=== PATIENT | male | born 1960 | race African-American/Black ===

== ENCOUNTER 2018-07-02 09:58 | Inpatient (IN) | payer MEDICARE, MEDICAID ==
[~2018-07-02] VITALS: Ht 172.7 cm; Wt 87.8 kg
[2018-07-02] VITALS (8 sets, daily range): BP systolic 136–161; BP diastolic 78–122
[~2018-07-02 09:58] MED LIST: ACID1TAB7 PO; ASPI325T17 PO; ATOR40TA78 PO; CARV12.52 PO; FURO20TA3 PO; LISI-167 PO; SPIR25TA PO; TAMS0.4C2 PO
--- NOTE | 2018-07-02 10:59 | NUR ---
pt c/o lightheadedness this am with near syncopal event. pt currently complaint free and denies cp/ sob, dizziness, lightheadedness.
[2018-07-02] MEDS ORDERED: SPIR25TA5 PO (11:03)
[2018-07-02 11:47] LABS: ALBUMIN 3.7 g/dL (3.4-5.0); ANION GAP 4 mmol/L (5-15); CALCIUM 8.6 mg/dL (8.5-10.1); CHLORIDE 111 mmol/L (98-107)
[2018-07-02 11:56] LABS: TROPONIN I 0.127 ng/mL (0.000-0.045)
[2018-07-02 12:23] LABS: MEAN CORPUSCULAR HEMOGLOBIN 23.5 pg (27.5-34.5); MEAN CORPUSCULAR HGB CONC 31.8 g/dL (33.2-36.2); MEAN PLATELET VOLUME 12.9 fL (7.4-10.4); PLATELET COUNT 206 x10^3/uL (130-400); RED BLOOD COUNT 5.98 x10^6/uL (4.38-5.82); RED CELL DISTRIBUTION WIDTH 17.5 % (9.4-14.8)
[2018-07-02 12:24] LABS: MD YES
[2018-07-02 12:27] LABS: BAND#(MANUAL) 0.11 x10^3/uL; BANDS%(MANUAL) 2 % (0-7); EOS#(MANUAL) 0.16 x10^3/uL (0.0-0.4); EOS% (MANUAL) 3 % (1-7); LYMPHS% (MANUAL) 34 % (22-44); MONOS#(MANUAL) 0.27 x10^3/uL (0.3-2.7); MONOS% (MANUAL) 5 % (2-9); REACTIVE LYMPHS # (MANUAL) 0.05 x10^3/uL (0-0); REACTIVE LYMPHS % (MANUAL) 1 % (0-0); SEG#(MANUAL) 2.92 x10^3/uL (1.8-6.8); SEGS% (MANUAL) 55 % (42-75)
[2018-07-02 12:29] LABS: ANISOCYTOSIS 1+; HYPOCHROMIA 1+; MICROCYTOSIS 1+; OVALOCYTES 2+; SCHISTOCYTES 1+
[2018-07-02 12:30] LABS: POLYCHROMASIA 1+
[2018-07-02 12:31] LABS: <PLATELET ESTIMATE> ADEQUATE; GIANT PLATELETS 1+; LARGE PLATELETS 1+; SPHEROCYTES 1+
[2018-07-02 12:32] LABS: TEAR DROPS 1+
[2018-07-02] MEDS ORDERED: ONDANSETRON 2MG/ML, 2ML IVPush PRN (13:00)
[2018-07-02] MEDS ORDERED: HEPARIN 5,000 UNITS/ML, 1ML IV PRN (13:00)
[2018-07-02] MEDS ORDERED: LABETALOL 5 MG/ML SYRINGE IVPush PRN (13:00)
[2018-07-02] MEDS ORDERED: ONDANSETRON ODT 4 MG PO PRN (13:00)
[2018-07-02] MEDS ORDERED: HEPARIN 5,000 UNITS/ML, 1ML IV ONE (13:00)
[2018-07-02] MEDS ORDERED: HEPARIN 25,000 UNITS/500ML PMX 500 ML IV PRN (13:00)
[2018-07-02] MEDS ORDERED: HEPARIN 5,000 UNITS/ML, 1ML ONE (13:07)
[2018-07-02] MEDS ORDERED: HEPARIN 25,000 UNITS/500ML PMX 500 ML ONE (13:08)
--- NOTE | 2018-07-02 13:31 | NUR ---
pt medicated per order at this time. pt aware while medication is being administered that he is to stay in bed and is not to walk around. pt agrees with care.
[2018-07-02 17:24] LABS: TROPONIN I 0.117 ng/mL (0.000-0.045)
[2018-07-02 18:15] LABS: FREE T4 (FREE THYROXINE) 1.33 ng/dL (0.76-1.46); THYROID STIMULATING HORMONE 1.43 mIU/L (0.358-3.740)
[2018-07-02] MEDS: CARVEDILOL 12.5 MG TABLET PO SCH (20:54)
[2018-07-02] MEDS: ATORVASTATIN 40 MG TABLET PO SCH (20:54)
[2018-07-03 00:54] VITALS: BP 134/94
[2018-07-03] MEDS: ASPIRIN 81 MG TABLET EC PO SCH (05:43)
[2018-07-03 06:01] LABS: MEAN CORPUSCULAR HEMOGLOBIN 24.1 pg (27.5-34.5); MEAN CORPUSCULAR HGB CONC 32.6 g/dL (33.2-36.2); MEAN CORPUSCULAR VOLUME 73.8 fL (81-97); PLATELET COUNT 173 x10^3/uL (130-400); RED BLOOD COUNT 5.71 x10^6/uL (4.38-5.82)
[2018-07-03 06:09] LABS: CHLORIDE 113 mmol/L (98-107)
[2018-07-03 06:20] LABS: ALANINE AMINOTRANSFERASE 73 U/L (12-78); ALBUMIN 3.5 g/dL (3.4-5.0); ALKALINE PHOSPHATASE 98 U/L (45-117); BILIRUBIN,TOTAL 1.3 mg/dL (0.2-1.0); CALCIUM 8.3 mg/dL (8.5-10.1); CREATININE 1.36 mg/dL (0.7-1.3); TOTAL PROTEIN 6.1 g/dL (6.4-8.2); TROPONIN I 0.131 ng/mL (0.000-0.045)
[2018-07-03 06:32] LABS: BASOPHILS # (AUTO) 0.02 x10^3/uL (0-0.1); BASOPHILS % (AUTO) 0 % (0-1); EOSINOPHILS # (AUTO) 0.08 x10^3/uL (0-0.4); EOSINOPHILS % (AUTO) 1 % (1-7); LYMPHOCYTES # (AUTO) 2.32 x10^3/uL (1-3.4); LYMPHOCYTES % (AUTO) 35 % (22-44); MD SCAN; MONOCYTES % (AUTO) 11 % (2-9); NEUTROPHILS # (AUTO) 3.59 x10^3/uL (1.8-6.8); NEUTROPHILS % (AUTO) 54 % (42-75)
[2018-07-03 06:47] LABS: ANION GAP 9 mmol/L (5-15)
[2018-07-03 07:24] VITALS: BP 144/101
[2018-07-03] MEDS: TAMSULOSIN 0.4 MG CAP.ER.24H PO SCH (08:19)
[2018-07-03] MEDS: SPIRONOLACTONE 25 MG TABLET PO SCH (08:19)
[2018-07-03] MEDS: CARVEDILOL 12.5 MG TABLET PO SCH ×2 (08:20→21:26)
[2018-07-03] MEDS: LISINOPRIL 10 MG TABLET PO SCH (08:20)
[2018-07-03] MEDS: ENOXAPARIN 40 MG/0.4 ML SQ SCH (11:33)
[2018-07-03 14:47] VITALS: BP 139/92
[2018-07-03 21:26] VITALS: BP 156/111
[2018-07-03] MEDS: ATORVASTATIN 40 MG TABLET PO SCH (21:26)
[2018-07-04 03:55] VITALS: BP 160/105
[2018-07-04 05:47] LABS: MEAN CORPUSCULAR HEMOGLOBIN 23.5 pg (27.5-34.5); MEAN CORPUSCULAR HGB CONC 31.8 g/dL (33.2-36.2); MEAN CORPUSCULAR VOLUME 73.7 fL (81-97); RED BLOOD COUNT 5.81 x10^6/uL (4.38-5.82); RED CELL DISTRIBUTION WIDTH 17.1 % (9.4-14.8)
[2018-07-04 05:59] LABS: ALBUMIN 3.4 g/dL (3.4-5.0); ANION GAP 7 mmol/L (5-15); CALCIUM 8.6 mg/dL (8.5-10.1); CHLORIDE 112 mmol/L (98-107)
[2018-07-04 06:03] LABS: ALANINE AMINOTRANSFERASE 71 U/L (12-78); ALKALINE PHOSPHATASE 101 U/L (45-117); BILIRUBIN,TOTAL 1.3 mg/dL (0.2-1.0); CREATININE 1.32 mg/dL (0.7-1.3); TOTAL PROTEIN 6.3 g/dL (6.4-8.2)
[2018-07-04 06:11] LABS: MEAN PLATELET VOLUME 12.9 fL (7.4-10.4); PLATELET COUNT 201 x10^3/uL (130-400)
[2018-07-04 06:12] LABS: BASOPHILS # (AUTO) 0.04 x10^3/uL (0-0.1); BASOPHILS % (AUTO) 1 % (0-1); EOSINOPHILS % (AUTO) 2 % (1-7); LYMPHOCYTES # (AUTO) 2.16 x10^3/uL (1-3.4); LYMPHOCYTES % (AUTO) 40 % (22-44); MD MORPH REVIEW ONLY; MONOCYTES # (AUTO) 0.47 x10^3/uL (0.2-0.8); MONOCYTES % (AUTO) 9 % (2-9); NEUTROPHILS % (AUTO) 49 % (42-75)
[2018-07-04 06:13] LABS: ANISOCYTOSIS 1+; HYPOCHROMIA 1+; MICROCYTOSIS 1+; OVALOCYTES 2+; POLYCHROMASIA 1+
[2018-07-04 06:15] LABS: <PLATELET ESTIMATE> ADEQUATE; GIANT PLATELETS 1+; LARGE PLATELETS 1+; SCHISTOCYTES 1+; TARGET CELLS 1+; TEAR DROPS 1+
[2018-07-04 06:17] LABS: ECHINOCYTES 1+
[2018-07-04] MEDS: ASPIRIN 81 MG TABLET EC PO SCH (06:42)
[2018-07-04 07:49] VITALS: BP 151/95
[2018-07-04] MEDS: LISINOPRIL 10 MG TABLET PO SCH (09:28)
[2018-07-04] MEDS: SPIRONOLACTONE 25 MG TABLET PO SCH (09:28)
[2018-07-04] MEDS: CARVEDILOL 12.5 MG TABLET PO SCH (09:28)
[2018-07-04] MEDS: ENOXAPARIN 40 MG/0.4 ML SQ SCH (09:28)
[2018-07-04] MEDS: TAMSULOSIN 0.4 MG CAP.ER.24H PO SCH (09:28)
[2018-07-04] MEDS ORDERED: CARV25TA12 PO (12:37)
[2018-07-04] MEDS ORDERED: CARVEDILOL 25 MG TABLET PO SCH (18:00)
== END 2018-07-04 13:40 | disposition home or self-care (01) | DRG 280 ==
LOC: ED 11:22 → EDIP 12:47 → 5SO 14:52 → DCLOUNGE 07-04 13:28
PROVIDERS: ADMIT Hospitalist; ATTEND Hospitalist
DX: I21.4 Non-ST elevation (NSTEMI) myocardial infarction (principal); N17.0 Acute kidney failure with tubular necrosis; I47.2 Ventricular tachycardia; I25.5 Ischemic cardiomyopathy; I11.0 Hypertensive heart disease with heart failure; D75.89 Other specified diseases of blood and blood-forming organs; E78.5 Hyperlipidemia, unspecified; E86.0 Dehydration; G90.9 Disorder of the autonomic nervous system, unspecified; I07.1 Rheumatic tricuspid insufficiency; I25.10 Atherosclerotic heart disease of native coronary artery without angina pectoris; I48.91 Unspecified atrial fibrillation; I25.2 Old myocardial infarction; I50.9 Heart failure, unspecified; I95.1 Orthostatic hypotension; K21.9 Gastro-esophageal reflux disease without esophagitis; N28.9 Disorder of kidney and ureter, unspecified; N40.0 Benign prostatic hyperplasia without lower urinary tract symptoms; Z79.899 Other long term (current) drug therapy; Z86.73 Personal history of transient ischemic attack (TIA), and cerebral infarction without residual deficits; Z87.891 Personal history of nicotine dependence; Z95.810 Presence of automatic (implantable) cardiac defibrillator
CPT/HCPCS: 36415; 70450; 71045; 80048; 80053; 82040; 82607; 82728; 83540; 83550; 83735; 84100; 84439; 84443; 84484; 85025; 85520; 93005; 93880; 99291; G0378; J1644

== ENCOUNTER 2018-08-16 10:56 | Inpatient (IN) | payer MEDICARE, MEDICAID ==
[~2018-08-16] VITALS: Ht 172.7 cm; Wt 79.0 kg
[~2018-08-16 10:56] MED LIST changes: +CARV25TA12 PO; +SPIR25TA5 PO
--- NOTE | 2018-08-16 11:20 | NUR ---
Pt bib girlfriend after waking up this morning with RUE numbness/weakness & confusion. Pt has no facial droop, drift of RUE after 8sec w/ weaker cad developer R hand. Oriented to person & place but not time/event. Per girlfriend, exhibited none of these s/s last night before going to bed. EKG done in triage, cardiac, NIBP & SPO2 monitors IP.
[2018-08-16] MEDS ORDERED: SODIUM CHLORIDE FLUSH 10ML SYR IVF ONE (11:30)
[2018-08-16] MEDS ORDERED: METR500T PO (11:58)
[2018-08-16] MEDS ORDERED: CARV12.52 PO (11:58)
[2018-08-16] MEDS ORDERED: LISI-167 PO (11:58)
--- NOTE | 2018-08-16 12:00 | NUR ---
CT head complete. Results pending.
[2018-08-16 12:01] LABS: ALBUMIN 3.9 g/dL (3.4-5.0); ANION GAP 8 mmol/L (5-15); CALCIUM 9.1 mg/dL (8.5-10.1); CHLORIDE 109 mmol/L (98-107); CREATININE 1.33 mg/dL (0.7-1.3)
[2018-08-16 12:17] LABS: BASOPHILS # (AUTO) 0.01 x10^3/uL (0-0.1); BASOPHILS % (AUTO) 0 % (0-1); EOSINOPHILS # (AUTO) 0.13 x10^3/uL (0-0.4); EOSINOPHILS % (AUTO) 2 % (1-7); LYMPHOCYTES # (AUTO) 1.36 x10^3/uL (1-3.4); LYMPHOCYTES % (AUTO) 22 % (22-44); MD SCAN; MEAN CORPUSCULAR HEMOGLOBIN 23.3 pg (27.5-34.5); MEAN CORPUSCULAR HGB CONC 32.4 g/dL (33.2-36.2); MEAN CORPUSCULAR VOLUME 71.9 fL (81-97); MEAN PLATELET VOLUME 12.8 fL (7.4-10.4); MONOCYTES # (AUTO) 0.41 x10^3/uL (0.2-0.8); MONOCYTES % (AUTO) 7 % (2-9); NEUTROPHILS # (AUTO) 4.28 x10^3/uL (1.8-6.8); NEUTROPHILS % (AUTO) 69 % (42-75); PLATELET COUNT 221 x10^3/uL (130-400); RED BLOOD COUNT 6.57 x10^6/uL (4.38-5.82)
[2018-08-16] MEDS ORDERED: ASPIRIN 81 MG TABLET CHEW ONE (12:41)
[2018-08-16] MEDS ORDERED: ASPIRIN 81 MG TABLET CHEW PO ONE (13:00)
[2018-08-16] MEDS ORDERED: hydrALAzine 20 MG/ML, 1ML ONE (13:07)
--- NOTE | 2018-08-16 13:16 | NUR ---
PT. WAS MEDICATED ORDERED. PT. HAS THE CP MONITOR IN PLACE. BP REMAINS ELEVATED DISCUSSED WITH DR. DURAN. PT. HAS THE SIDERAILS UP X [address] AND THE CALL LIGHT IN PLACE. PT. PASSED HIS SWALLOW EVALUATION. PT. HAS NO C/O PAIN AT THIS TIME.
[2018-08-16] MEDS ORDERED: hydrALAzine 20 MG/ML, 1ML IV ONE (13:30)
--- NOTE | 2018-08-16 13:36 | NUR ---
PT. HAS C/O FEELING SOB. SATS ARE 100%. 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 PT.'S BP IS ELEVATED DISCUSSED WITH .
--- NOTE | 2018-08-16 13:57 | NUR ---
DR. FREY TO THE BEDSIDE TO EVALUATE THE PT. PT. WAS STARTED ON NICARDIPINE ORDERED. RN REMAINS AT THE BEDSIDE WITH THE PT. CONTINUOUS MONITORING IN PLACE. REPEAT EKG DONE. PT. DOES C/O OF FEELING SOB.
--- NOTE | 2018-08-16 14:04 | NUR ---
PT. REPORT WAS GIVEN TO MAVERICK LOPEZ.
--- NOTE | 2018-08-16 14:33 | NUR ---
PT.'S BLOOD PRESSURE HAS IMPROVED. DR. FREY TO THE BEDSIDE TO ASSESS THE PT. PT. HAS A SECOND IV ESTABLISHED. REPORT WAS GIVEN TO MAVERICK LOPEZ. PT. IS BEING TRANSPORTED TO ICU ROOM 2. JOHN BULLOCK AND CORTNEY AKBAR TO ACCOMPANY THE PT.
[2018-08-16] MEDS ORDERED: DOCUSATE 100 MG CAPSULE PO PRN (15:30)
[2018-08-16] MEDS: ENOXAPARIN 40 MG/0.4 ML SQ SCH (15:30)
[2018-08-16] MEDS ORDERED: LABETALOL 5MG/ML, 20ML IVPush PRN (15:30)
[2018-08-16] MEDS ORDERED: ACETAMINOPHEN 650 MG/20.3 ML UDC PO PRN (15:30)
[2018-08-16] MEDS ORDERED: OXYcodone 5 MG/5 ML ORAL.SOL UDC PO PRN (15:30)
[2018-08-16] MEDS ORDERED: hydrALAzine 20 MG/ML, 1ML IVPush PRN (15:30)
[2018-08-16] MEDS ORDERED: ONDANSETRON 2MG/ML, 2ML IVPush PRN (15:30)
[2018-08-16] MEDS ORDERED: POLYETHYLENE GLYCOL 17 GM PACKET PO PRN (15:30)
[2018-08-16 16:20] LABS: AMPHETAMINE SCREEN, URINE Negative (Negative); BARBITURATE SCREEN, URINE Negative (Negative); BENZODIAZEPINE SCREEN, URINE Negative (Negative); CANNABINOID SCREEN, URINE Negative (Negative); COCAINE SCREEN, URINE Negative (Negative); METHADONE SCREEN, URINE Negative (Negative); OPIATE SCREEN, URINE Negative (Negative)
[2018-08-16] MEDS: ATORVASTATIN 80 MG TABLET PO SCH (20:29)
[2018-08-17 04:59] LABS: MEAN CORPUSCULAR HEMOGLOBIN 23.6 pg (27.5-34.5); MEAN CORPUSCULAR HGB CONC 32.5 g/dL (33.2-36.2); MEAN CORPUSCULAR VOLUME 72.8 fL (81-97); MEAN PLATELET VOLUME 12.9 fL (7.4-10.4); PLATELET COUNT 211 x10^3/uL (130-400); RED BLOOD COUNT 6.46 x10^6/uL (4.38-5.82); RED CELL DISTRIBUTION WIDTH 16.2 % (9.4-14.8)
[2018-08-17 05:01] VITALS: BP 162/100
[2018-08-17 05:05] LABS: ALBUMIN 3.7 g/dL (3.4-5.0); ANION GAP 7 mmol/L (5-15); CALCIUM 9.5 mg/dL (8.5-10.1); CHLORIDE 105 mmol/L (98-107)
[2018-08-17 05:09] LABS: ALANINE AMINOTRANSFERASE 19 U/L (12-78); ALKALINE PHOSPHATASE 78 U/L (45-117); BILIRUBIN,TOTAL 2.2 mg/dL (0.2-1.0); CHOL/HDL RATIO 5.8; CHOLESTEROL, TOTAL 150 mg/dL (140-239); CREATININE 1.24 mg/dL (0.7-1.3); HDL CHOL % 17 % (26-37); HDL CHOLESTEROL (DIRECT) 26 mg/dL (40-60); LDL CHOLESTEROL,CALCULATED 106 mg/dL (54-169); LDL/HDL RATIO 4.1 (0.5-3.0); TOTAL PROTEIN 7.2 g/dL (6.4-8.2); TRIGLYCERIDES 89 mg/dL (50-200); VLDL CHOLESTEROL 18 mg/dL (0-25)
[2018-08-17 06:32] LABS: BASOPHILS # (AUTO) 0.02 x10^3/uL (0-0.1); BASOPHILS % (AUTO) 0 % (0-1); EOSINOPHILS # (AUTO) 0.14 x10^3/uL (0-0.4); EOSINOPHILS % (AUTO) 2 % (1-7); LYMPHOCYTES # (AUTO) 1.58 x10^3/uL (1-3.4); LYMPHOCYTES % (AUTO) 24 % (22-44); MD SCAN; MONOCYTES # (AUTO) 0.69 x10^3/uL (0.2-0.8); MONOCYTES % (AUTO) 11 % (2-9); NEUTROPHILS # (AUTO) 4.03 x10^3/uL (1.8-6.8); NEUTROPHILS % (AUTO) 62 % (42-75)
[2018-08-17] MEDS: CLOPIDOGREL 75 MG TABLET PO SCH (08:39)
[2018-08-17] MEDS: ASPIRIN 81 MG TABLET CHEW PO/NG SCH (08:40)
[2018-08-17] MEDS: ENOXAPARIN 40 MG/0.4 ML SQ SCH (16:22)
[2018-08-17 17:38] VITALS: BP 140/103
[2018-08-17 19:13] VITALS: BP 132/96
[2018-08-17] MEDS: ATORVASTATIN 80 MG TABLET PO SCH (20:39)
[2018-08-17] MEDS: CARVEDILOL 12.5 MG TABLET PO SCH (20:39)
[2018-08-17] MEDS: FUROSEMIDE 20 MG TABLET PO SCH (20:39)
[2018-08-18 02:19] VITALS: BP 106/70
[2018-08-18 07:02] VITALS: BP 141/95
[2018-08-18] MEDS: CARVEDILOL 12.5 MG TABLET PO SCH (08:22)
[2018-08-18] MEDS: CLOPIDOGREL 75 MG TABLET PO SCH (08:23)
[2018-08-18] MEDS: FUROSEMIDE 20 MG TABLET PO SCH (08:23)
[2018-08-18] MEDS: ASPIRIN 81 MG TABLET CHEW PO/NG SCH (08:24)
[2018-08-18] MEDS ORDERED: LISINOPRIL 10 MG TABLET PO SCH (09:00)
[2018-08-18] MEDS ORDERED: SPIRONOLACTONE 25 MG TABLET PO SCH (09:00)
[2018-08-18 12:16] VITALS: BP 93/66
[2018-08-18] MEDS ORDERED: ASPI-515 PO/NG (14:02)
[2018-08-18] MEDS ORDERED: LISI5TAB7 PO (14:02)
[2018-08-18] MEDS ORDERED: CLOP75TA PO (14:02)
[2018-08-18] MEDS ORDERED: POLY17PO5 PO (14:02)
[2018-08-18] MEDS ORDERED: SPIR25TA5 PO (14:14)
[2018-08-18] MEDS ORDERED: TAMS-11 PO (14:14)
[2018-08-18] MEDS ORDERED: ATOR-2 PO (16:12)
== END 2018-08-18 16:09 | disposition home or self-care (01) | DRG 64 ==
LOC: ED 14:19 → ICU 14:20 → CCU 16:52 → ICU 20:22 → 4EST 08-17 17:47 → DCLOUNGE 08-18 15:40
PROVIDERS: ADMIT Internal Medicine; ATTEND Internal Medicine
DX: I63.412 Cerebral infarction due to embolism of left middle cerebral artery (principal); N17.0 Acute kidney failure with tubular necrosis; I42.9 Cardiomyopathy, unspecified; I31.3 Pericardial effusion (noninflammatory); G83.21 Monoplegia of upper limb affecting right dominant side; I11.0 Hypertensive heart disease with heart failure; I50.9 Heart failure, unspecified; E78.5 Hyperlipidemia, unspecified; I25.10 Atherosclerotic heart disease of native coronary artery without angina pectoris; K21.9 Gastro-esophageal reflux disease without esophagitis; N40.0 Benign prostatic hyperplasia without lower urinary tract symptoms; I27.20 Pulmonary hypertension, unspecified; I08.1 Rheumatic disorders of both mitral and tricuspid valves; D75.89 Other specified diseases of blood and blood-forming organs; Z95.810 Presence of automatic (implantable) cardiac defibrillator; Z82.49 Family history of ischemic heart disease and other diseases of the circulatory system; Z79.82 Long term (current) use of aspirin; Z79.899 Other long term (current) drug therapy; Z79.01 Long term (current) use of anticoagulants; I25.2 Old myocardial infarction; Z87.891 Personal history of nicotine dependence
CPT/HCPCS: 36415; 70450; 71045; 80048; 80053; 80061; 80307; 82040; 82728; 83540; 83550; 83735; 84443; 85025; 87081; 93005; 93880; 96374; 96375; C8929; G0378; J1650; Q9957; 92523-GN; J0360; J7050

== ENCOUNTER → 2018-10-12 | Outpatient (CLI) | payer MEDICARE, MEDICAID ==
[~2018-10-12] MED LIST changes: +ASPI-515 PO/NG; +ATOR-2 PO; +CLOP75TA PO; +LISI5TAB7 PO; +METR500T PO; +POLY17PO5 PO; +TAMS-11 PO
[2018-10-12 08:08] LABS: ALANINE AMINOTRANSFERASE 40 U/L (12-78); ALBUMIN 4.1 g/dL (3.4-5.0); ANION GAP 7 mmol/L (5-15); CHLORIDE 107 mmol/L (98-107); CHOLESTEROL, TOTAL 132 mg/dL (140-239); CREATININE 1.28 mg/dL (0.7-1.3)
[2018-10-12 08:12] LABS: ALKALINE PHOSPHATASE 91 U/L (45-117); BILIRUBIN,TOTAL 0.7 mg/dL (0.2-1.0); CHOL/HDL RATIO 2.9; HDL CHOL % 34 % (26-37); HDL CHOLESTEROL (DIRECT) 45 mg/dL (40-60); LDL CHOLESTEROL,CALCULATED 70 mg/dL (54-169); LDL/HDL RATIO 1.6 (0.5-3.0); TOTAL PROTEIN 7.7 g/dL (6.4-8.2); TRIGLYCERIDES 84 mg/dL (50-200); VLDL CHOLESTEROL 17 mg/dL (0-25)
== END | disposition home or self-care (01) ==
LOC: LAB 07:43
PROVIDERS: ATTEND Internal Medicine Cardiovascular Disease
DX: E78.5 Hyperlipidemia, unspecified (principal); I42.9 Cardiomyopathy, unspecified; R06.02 Shortness of breath
CPT/HCPCS: 36415; 80053; 80061; 83880

== ENCOUNTER → 2019-05-23 | Outpatient (CLI) | payer MEDICARE | END | disposition home or self-care (01) | LOC: CVU 09:54 | PROVIDERS: ATTEND Registered Nurse | DX: I08.8 Other rheumatic multiple valve diseases (principal); I25.2 Old myocardial infarction; I10 Essential (primary) hypertension; E78.5 Hyperlipidemia, unspecified; Z95.810 Presence of automatic (implantable) cardiac defibrillator | CPT/HCPCS: 93306; 93356 ==

== ENCOUNTER → 2019-08-29 | Outpatient (CLI) | payer OTHER, MEDICARE ==
[~2019-08-29] MED LIST changes: +INSU100I13 SQ-INSULIN
[2019-08-29 11:21] LABS: ALANINE AMINOTRANSFERASE 26 U/L (12-78); ALBUMIN 3.6 g/dL (3.4-5.0); ANION GAP 5 mmol/L (5-15); CALCIUM 8.6 mg/dL (8.5-10.1); CHLORIDE 107 mmol/L (98-107); CHOLESTEROL, TOTAL 111 mg/dL (140-239); CREATININE 1.07 mg/dL (0.7-1.3)
[2019-08-29 11:24] LABS: ALKALINE PHOSPHATASE 85 U/L (45-117); BILIRUBIN,TOTAL 0.7 mg/dL (0.2-1.0); CHOL/HDL RATIO 2.7; HDL CHOL % 37 % (26-37); HDL CHOLESTEROL (DIRECT) 41 mg/dL (40-60); LDL CHOLESTEROL,CALCULATED 56 mg/dL (54-169); LDL/HDL RATIO 1.4 (0.5-3.0); TOTAL PROTEIN 7.2 g/dL (6.4-8.2); TRIGLYCERIDES 68 mg/dL (50-200); VLDL CHOLESTEROL 14 mg/dL (0-25)
== END | disposition home or self-care (01) ==
LOC: LAB 10:49
PROVIDERS: ATTEND Family Medicine
DX: E11.65 Type 2 diabetes mellitus with hyperglycemia (principal); E55.9 Vitamin D deficiency, unspecified; E78.2 Mixed hyperlipidemia; I10 Essential (primary) hypertension
CPT/HCPCS: 36415; 80053; 80061; 82306; 83036

== ENCOUNTER → 2020-08-12 | Outpatient (CLI) | payer OTHER, MEDICARE ==
[~2020-08-12] MED LIST changes: -ASPI-515 PO/NG; +ASPI-963 PO/NG
== END | disposition home or self-care (01) ==
LOC: CFH 13:37
PROVIDERS: ATTEND Internal Medicine Cardiovascular Disease
DX: I31.3 Pericardial effusion (noninflammatory) (principal); I42.9 Cardiomyopathy, unspecified; I50.42 Chronic combined systolic (congestive) and diastolic (congestive) heart failure; I11.0 Hypertensive heart disease with heart failure; I25.2 Old myocardial infarction; E78.5 Hyperlipidemia, unspecified; E11.9 Type 2 diabetes mellitus without complications; Z95.810 Presence of automatic (implantable) cardiac defibrillator
CPT/HCPCS: 93306; 93356

== ENCOUNTER → 2020-12-13 | Outpatient (CLI) | payer MEDICARE, OTHER ==
[2020-12-13 12:02] LABS: MEAN CORPUSCULAR HGB CONC 32.3 g/dL (33.2-36.2); MEAN PLATELET VOLUME 9.1 fL (7.4-10.4); PLATELET COUNT 171 x10^3/uL (130-400); RED BLOOD COUNT 5.94 x10^6/uL (4.38-5.82); RED CELL DISTRIBUTION WIDTH 15.3 % (9.4-14.8)
[2020-12-13 12:53] LABS: ALBUMIN 3.5 g/dL (3.4-5.0); ANION GAP 7 mmol/L (5-15); CALCIUM 9.2 mg/dL (8.5-10.1); CHLORIDE 107 mmol/L (98-107)
[2020-12-13 12:56] LABS: ALANINE AMINOTRANSFERASE 34 U/L (12-78); ALKALINE PHOSPHATASE 83 U/L (45-117); BILIRUBIN,TOTAL 0.8 mg/dL (0.2-1.0); CHOL/HDL RATIO 3.6; CHOLESTEROL, TOTAL 148 mg/dL (140-239); CREATININE 1.06 mg/dL (0.7-1.3); HDL CHOL % 28 % (26-37); HDL CHOLESTEROL (DIRECT) 41 mg/dL (40-60); LDL CHOLESTEROL,CALCULATED 84 mg/dL (54-169); TOTAL PROTEIN 7.5 g/dL (6.4-8.2); TRIGLYCERIDES 113 mg/dL (50-200); VLDL CHOLESTEROL 23 mg/dL (0-25)
== END | disposition home or self-care (01) ==
LOC: LAB 11:32
PROVIDERS: ATTEND Internal Medicine Cardiovascular Disease
DX: R97.20 Elevated prostate specific antigen [PSA] (principal); E11.65 Type 2 diabetes mellitus with hyperglycemia; E78.5 Hyperlipidemia, unspecified; E87.1 Hypo-osmolality and hyponatremia
CPT/HCPCS: 36415; 80053; 80061; 83036; 84153; 85027

== ENCOUNTER 2021-01-16 21:41 | Emergency (ER) | payer OTHER, MEDICARE ==
[~2021-01-16] VITALS: Ht 172.7 cm; Wt 88.7 kg
[2021-01-16 23:27] VITALS: BP 210/129
[2021-01-16 23:30] LABS: BASOPHILS % (AUTO) 1 % (0-1); EOSINOPHILS % (AUTO) 2 % (1-7); LYMPHOCYTES % (AUTO) 42 % (22-44); MEAN CORPUSCULAR HEMOGLOBIN 23.1 pg (27.5-34.5); MEAN CORPUSCULAR HGB CONC 32.7 g/dL (33.2-36.2); MEAN PLATELET VOLUME 9.6 fL (7.4-10.4); MONOCYTES % (AUTO) 9 % (2-9); NEUTROPHILS % (AUTO) 47 % (42-75); PLATELET COUNT 174 x10^3/uL (130-400); RED BLOOD COUNT 6.15 x10^6/uL (4.38-5.82); RED CELL DISTRIBUTION WIDTH 14.9 % (9.4-14.8)
[2021-01-16 23:36] LABS: ALANINE AMINOTRANSFERASE 37 U/L (12-78); ALBUMIN 3.5 g/dL (3.4-5.0); ANION GAP 5 mmol/L (5-15); CALCIUM 8.7 mg/dL (8.5-10.1); CHLORIDE 103 mmol/L (98-107); CREATININE 1.13 mg/dL (0.7-1.3)
[2021-01-16 23:38] LABS: ALKALINE PHOSPHATASE 91 U/L (45-117); BILIRUBIN,TOTAL 0.5 mg/dL (0.2-1.0); TOTAL PROTEIN 7.6 g/dL (6.4-8.2)
[2021-01-17] LABS: MICROSCOPIC INDICATED
== END 2021-01-17 01:53 | disposition home or self-care (01) ==
LOC: ED 23:59
DX: R31.0 Gross hematuria (principal); I11.0 Hypertensive heart disease with heart failure; I50.9 Heart failure, unspecified; E11.65 Type 2 diabetes mellitus with hyperglycemia; I25.2 Old myocardial infarction; Z87.891 Personal history of nicotine dependence; Z86.73 Personal history of transient ischemic attack (TIA), and cerebral infarction without residual deficits
CPT/HCPCS: 36415; 74176; 80053; 81001; 85025; 93005; 99285